=== PATIENT | male | born 1965 | race Caucasian/White ===

== ENCOUNTER 2023-07-19 01:14 | Day surgery (SDC) | payer BC, SELFPAY ==
[2023-07-05 11:33] VITALS: BMI 31.2
--- NOTE | 2023-07-15 13:51 | SUR.PREOP ---
Patient called regarding upcoming procedure. Reviewed preop instructions, appointment times, and procedure prep.
[2023-07-19 07:47] VITALS: BP 125/87; PULSE 61; RESP 16; TEMP 35.7; O2SAT 100; BMI 31.8
[2023-07-19] MEDS: LACTATED RINGERS 1,000 ML 150 ML IV CONT (07:55)
--- NOTE | 2023-07-19 08:16 | P.HP_ITS ---
History of Present Illness History of Present Illness Consent: Risks, benefits, and alternatives have been discussed and questions answered. Patient agrees to proceed with procedure. Chief complaint: hx of colon polyps Narrative: Casey Eid is a 57 year old male Presents for colonoscopy. Patient's current weight appetite and bowel movements are normal. Patient denies abdominal pain. He has had no bleeding. Family history noncontributory. Patient was found to have a benign sessile serrated adenoma at the time of last colonoscopy in 2018. Patient presents today for follow-up colonoscopy. Review of Systems Review of Systems: Review of systems noncontributory. [facility] Social History Social History Smoking status: Former smoker Smoking end date: 08/08/07 Alcohol intake: current Alcohol use details: occasional Substance use: never Substance use type: does not use Living arrangements: with family Spiritual care concerns: No Meds Home Medications and Allergies Home Medications Medication Instructions Recorded Confirmed Type rosuvastatin 5 mg tablet 5 mg PO DAILY 07/05/23 07/19/23 History sertraline 25 mg tablet 25 mg PO DAILY 07/05/23 07/19/23 History Allergies Allergy/AdvReac Type Severity Reaction Status Date / Time No Known Allergies Allergy Verified 07/19/23 07:47 Vital Signs Vital Signs - 24 hr 07/19/23 07:47 Temperature 96.3 F L Pulse Rate 61 Respiratory Rate 16 Blood Pressure 125/87 Pulse Oximetry 100 Oxygen Delivery Room Air Exam Narrative: Physical exam reveals patient be alert. Vital signs stable. HEENT exam is unremarkable. Patient is anicteric. Lungs are clear to auscultation and percussion. Heart is without murmur or extra sounds. Abdomen bowel sounds are present soft nontender no hepatosplenomegaly. Digital external rectal exam normal. Assessment and Plan Assessment and plan (1) History of colon polyps: Code(s): Z86.010 - Personal history of colonic polyps Status: Acute Assessment and Plan: Patient has a prior history of adenomatous colon polyp. Plan for surveillance colonoscopy at this time.
--- NOTE | 2023-07-19 09:03 | P.PNAN_ITS ---
Anes - Initial Pre Proc Eval Procedure: Operation Date: 07/19/23 09:00 Proposed Procedures p Colonoscopy - Wilver Echevarria MD Date/Time: 07/19/23 09:03 Surgeon: Wilver Echevarria MD Pre Op Diagnosis: hx of colon polyps Patient Data Age: 57 Gender: M Height: 1.83 m Weight: 106.3 kg Last Vital Signs Temp 96.3 F L 07/19/23 07:47 Pulse 61 07/19/23 07:47 Resp 16 07/19/23 07:47 BP 125/87 07/19/23 07:47 Pulse Ox 100 07/19/23 07:47 O2 Del Method Room Air 07/19/23 07:47 Allergies Allergy/AdvReac Type Severity Reaction Status Date / Time No Known Allergies Allergy Verified 07/19/23 07:47 Home Medications Medication Instructions Recorded Confirmed Type rosuvastatin 5 mg tablet 5 mg PO DAILY 07/05/23 07/19/23 History sertraline 25 mg tablet 25 mg PO DAILY 07/05/23 07/19/23 History Patient hx anesthesia problems: none Family hx anesthesia problems: none Results Review: All pre-operative results and documents have been reviewed as part of the pre- operative evaluation. [facility] [place] Social History Social History Smoking status: Former smoker Smoking end date: 08/08/07 Alcohol intake: current Alcohol use details: occasional Substance use: never Substance use type: does not use Living arrangements: with family Spiritual care concerns: No Anes - Eval Final PreProcedure Day of Procedure 07/19/23 09:03 Patient weight: obese Heart: regular rate and rhythm Lungs: clear to auscultation Airway: Mallampati scale class II Neurological: alert and oriented Last oral intake: >/= 8 hours ASA classification: II Emergent: no Anesthetic plan: proceed Anesthesia type and monitoring: general GIVS and standard monitoring Results Review: All pre-operative results and documents have been reviewed as part of the pre- operative evaluation. Informed Consent: The patient's anesthetic plan and its attendant risks and benefits were discussed with the patient/family/POA. Questions were solicited and answers provided to the satisfaction of the patient/family/POA.
[2023-07-19 09:28] VITALS: BP 112/74; PULSE 56; RESP 12; O2SAT 100
[2023-07-19 09:38] VITALS: BP 112/72; PULSE 56; RESP 18; O2SAT 98
[2023-07-19 09:48] VITALS: BP 117/85; PULSE 50; RESP 16; O2SAT 98
== END 2023-07-19 09:52 | disposition home or self-care (01) ==
PROVIDERS: Visit Provider Internal Medicine Gastroenterology
PROC: 0DJD8ZZ Inspection of Lower Intestinal Tract, Via Natural or Artificial Opening Endoscopic (ICD-10-PCS; CPT 45378; principal; 2023-07-19 09:00)
DX: Z12.11 Encounter for screening for malignant neoplasm of colon (principal); D12.5 Benign neoplasm of sigmoid colon; K64.8 Other hemorrhoids; Z87.891 Personal history of nicotine dependence; E66.9 Obesity, unspecified; Z68.31 Body mass index [BMI] 31.0-31.9, adult
CPT/HCPCS: 45385; 88305; J2704; J7120